=== PATIENT | male | born 1945 | race Caucasian/White ===

== ENCOUNTER 2017-02-17 13:06 | Emergency (ER) | payer OTHER, MEDICARE ==
[~2017-02-17] VITALS: Ht 180.3 cm; Wt 79.4 kg
[2017-02-17 13:26] VITALS: BP 143/95; PULSE 57; RESP 14; TEMP 97.5; O2SAT 99
[2017-02-17] MEDS ORDERED: FAMOTIDINE 20 MG TABLET PO ONE (14:00)
[2017-02-17] MEDS ORDERED: DIPHENHYDRAMINE HCL 12.5 MG/5 ML UDC PO ONE (14:00)
[2017-02-17] MEDS ORDERED: PREDNISONE 20 MG TABLET PO ONE (14:30)
[2017-02-17 14:38] VITALS: BP 145/90; PULSE 54; RESP 14; TEMP 98.6; O2SAT 100
== END 2017-02-17 14:38 | disposition home or self-care (01) ==
LOC: SED 13:06
DX: T63.441A Toxic effect of venom of bees, accidental (unintentional), initial encounter (principal); X58.XXXA Exposure to other specified factors, initial encounter
CPT/HCPCS: 99284; J7512